=== PATIENT | female | born 1940 | race Caucasian/White ===

== ENCOUNTER 2022-09-04 14:58 | Emergency (ER) | payer OTHER ==
[~2022-09-04] VITALS: Ht 165.1 cm; Wt 69.0 kg
[2022-09-04] MEDS ORDERED: BACITRACIN ZINC OINT UDPKT TOP ONE (19:15)
[2022-09-04] MEDS ORDERED: LIDOCAINE HCL/PF 1% 10 MG/ML 5ML VIAL INFIL ONE (19:15)
[2022-09-04 20:37] VITALS: BP 108/66
== END 2022-09-04 21:28 | disposition home or self-care (01) ==
LOC: ER 14:58
DX: I83.892 Varicose veins of left lower extremity with other complications (principal); I95.9 Hypotension, unspecified; E11.9 Type 2 diabetes mellitus without complications; I10 Essential (primary) hypertension
CPT/HCPCS: 12001; 99285; J3490